=== PATIENT | female | born 1960 | race Caucasian/White ===

== ENCOUNTER 2024-09-09 20:07 | Emergency (ER) | payer OTHER, SELFPAY ==
[2024-09-09 20:17] VITALS: BP 138/66
--- NOTE | 2024-09-09 20:20 | ED.GENMED ---
ED Provider Triage
<Moshe Mejia Jr., PA-C - Last Filed: 09/09/24 20:24>
-
Patient seen by provider in Triage?: Seen in Triage
Attestation: A medical screening examination has been initiated by a qualified medical provider. Based on the assessment performed at this time, it has been determined that an emergent medical condition may exist and the patient has been informed
that further medical evaluation and possible additional diagnostic testing may be needed.
HPI: 64-year-old female presenting to the emergency department today with concerns of back pain worsening recently. History of back issues. Does have a spinal stimulator pending pain management follow-up. Plan to start with pain medication as
well as steroid. Otherwise neuro vastly intact distally no bowel or bladder dysfunction.
GENERAL: Alert , in no apparent distress
EYE: No visual abnormalities.
NECK: Trachea midline
ENT: No visible abnormalities.
LUNGS: No acute respiratory distress
NEUROLOGICAL: Alert and oriented
SKIN: Skin intact. No visible changes.
MUSCULOSKELETAL: Moving extremities normally
PSYCH: Normal and appropriate interaction.
This is a medical evaluation conducted in person to initiate diagnostic evaluation and provide initial therapeutics. Please see further documentation by the treating clinician.
History of Present Illness
<Moshe Mejia Jr., PA-C - Last Filed: 09/09/24 20:24>
General
Chief Complaint: Musculo-Skeletal Complaint
Time Seen by Provider: 09/09/24 21:55
<Ted Moran PA-C - Last Filed: 09/09/24 22:39>
General
Source: patient
History of Present Illness
History of Present Illness:
64-year-old female with past medical history of chronic back pain status post spinal cord stimulator placement 5 years ago, hyperlipidemia, migraines, anxiety presenting to the ER for an acute exacerbation of her lower back pain as well as noting
some right upper neck/shoulder pain. Patient saw her pain management provider about a week and a half ago and had trigger point injections which she states did not do anything for her pain and is scheduled to undergo additional procedure on September
. Patient states that she normally does not take any oral medications due to the spinal stimulator being in place but states that she had some leftover oxycodone which she attempted to take but still without any relief. Patient also tried muscle
relaxer and Tylenol but did not have any relief with this she denies any fevers or infectious symptoms, focal weakness or numbness, traumatic injuries or any other concerns at this time. Patient notes she did not contact her pain management doctor
following the trigger point injections to let them know her symptoms were worsening.
Past History
<Moshe Mejia Jr., PA-C - Last Filed: 09/09/24 20:24>
Past History
ED Past Medical History: Asthma, Hypercholesterolemia, Hypothyroidism and Other
ED Past Surgical History: Cholecystectomy, Gynecological and Orthopedic
Social History
Tobacco: Former smoker
Alcohol: None
Drug: None
Personal:
Living: with family
Employment: Retired
Family History
Family History: Other
Review of Systems
<Ted Moran PA-C - Last Filed: 09/09/24 22:39>
Review of Systems
All Other Systems: ROS reviewed and negative except as documented in HPI and ROS
Phy Exam
<Ted Moran PA-C - Last Filed: 09/09/24 22:39>
Physical Exam
Physical Exam:
GENERAL: Alert , in no apparent distress but does appear uncomfortable with movement and is tearful
EYE: conjunctiva clear
NECK: Supple
ENT: o/p clr, mmm.
CARDIAC: Regular rate and rhythm
LUNGS: Clear breath sounds bilaterally, no acute respiratory distress, no wheezes/rales/rhonchi
BACK: Appears uncomfortable with movement, generally tender
NEUROLOGICAL: Alert and oriented, ambulates with steady gait, moves all extremities, 5 out of 5 strength to upper and lower extremities bilateral. Sensation grossly intact to light touch.
SKIN: Warm and dry, skin intact.
MUSCULOSKELETAL: well perfused.
PSYCH: Normal and appropriate interaction.
Scores
<Ted Moran PA-C - Last Filed: 09/09/24 22:39>
Heart Failure Risk
Heart Failure Risk Score: Not Applicable
Heart Score for Chest Pain Patients
STEMI patient?: Not applicable
Withdrawal Assessment of Alcohol
Withdrawal Assessment Completed?: Not applicable
Course
<Moshe Mejia Jr., PA-C - Last Filed: 09/09/24 20:24>
Orders/Labs/Results
Orders:
Orders
09/09/24 20:24
Ketorolac [Toradol] 15 mg IM NOW STA
Prednisone [Deltasone] 50 mg PO NOW STA
09/09/24 22:15
HYDROmorphone [Dilaudid] 0.5 mg IM NOW STA
Vital Signs
Initial and Last Documented VS:
Initial Vital Signs
Temp Pulse Resp BP Pulse Ox
97.4 F 65 20 138/66 98
09/09/24 20:17 09/09/24 20:17 09/09/24 20:17 09/09/24 20:17 09/09/24 20:17
Last Documented Vital Signs
Temp Pulse Resp BP Pulse Ox
97.4 F 70 18 135/89 98
09/09/24 20:17 09/09/24 22:31 09/09/24 22:31 09/09/24 22:31 09/09/24 22:31
<Ted Moran PA-C - Last Filed: 09/09/24 22:39>
Orders/Labs/Results
Orders:
Orders
09/09/24 20:24
Ketorolac [Toradol] 15 mg IM NOW STA
Prednisone [Deltasone] 50 mg PO NOW STA
09/09/24 22:15
HYDROmorphone [Dilaudid] 0.5 mg IM NOW STA
Vital Signs
Initial and Last Documented VS:
Initial Vital Signs
Temp Pulse Resp BP Pulse Ox
97.4 F 65 20 138/66 98
09/09/24 20:17 09/09/24 20:17 09/09/24 20:17 09/09/24 20:17 09/09/24 20:17
Last Documented Vital Signs
Temp Pulse Resp BP Pulse Ox
97.4 F 70 18 135/89 98
09/09/24 20:17 09/09/24 22:31 09/09/24 22:31 09/09/24 22:31 09/09/24 22:31
<Ted Moran PA-C - Last Filed: 09/09/24 22:39>
MDM/Problems Addressed
Differential Diagnosis Includes:
Acute on chronic exacerbation of lower back pain. Considered UTI however no urinary symptoms and pain is very clearly reproducible with movement and palpation, no concern for emergent pathology
MDM/Problems Addressed:
64 year old female with PMH of chronic back pain presenting to the ER for acute on chronic exacerbation. No relief with previous medications. No fevers, no neurologic symptoms/claudication/saddle anesthesias. Pain seems clearly reproducible with
movement and palpation. Patient was treated with Toradol and prednisone from triage but notes minimal relief with this. I explained to patient that her symptoms appear to be an acute on chronic exacerbation of her pain. Explained patient would
need to follow-up with her pain management provider for further evaluation and treatment of this. Will treat her with 1 dose of intramuscular Dilaudid here and send her home with a Medrol Dosepak. At this time patient is otherwise stable for
discharge and aware of return precautions.
<Ted Moran PA-C - Last Filed: 09/09/24 22:39>
*Pulse Oximetry
Patient hypoxic: no
*Critical Care Note
Total Time (30-74mins, 75-104mins- exclusive of procedures): Not Applicable
Data Reviewed
Review of Other/Old Records Reveals: Records and Radiology Studies
ED Attending Note
<Moshe Mejia Jr., PA-C - Last Filed: 09/09/24 20:24>
-
Portions of this chart may have been created with voice recognition software.� Occasional wrong word or��sound alike� substitutions may have occurred due to the inherent limitations of voice recognition software.
Discharge Plan
Departure
Patient Disposition: Home (Routine Discharge)
Date of Disposition: 09/09/24
Time of Disposition: 22:16
Patient with high blood pressure during this ER visit?: No
Discharge Problem:
Acute exacerbation of chronic low back pain
Instructions: Low back pain - Discharge instructions
Prescriptions:
New
methylprednisolone [Medrol (Nicolas)] 4 mg tablets,dose pack
4 mg PO DIRECTED Qty: 21 0RF
No Action
Aller-Daisy
1 tab PO DAILY
multivitamin [One Daily] 1 EACH tablet
1 ea PO DAILY
atorvastatin 40 MG tablet
40 mg PO QPM
promethazine-codeine 473 ML syrup
118 ml PO PRN PRN (Reason: cough)
acyclovir [Zovirax] 400 MG tablet
400 mg PO TID PRN (Reason: viral outbreak)
chlorzoxazone 250 MG tablet
250 mg PO HS
citalopram 20 MG tablet
20 mg PO DAILY
oxycodone-acetaminophen [Percocet] 1 EACH tablet
1 ea PO BID PRN (Reason: pain)
levothyroxine 150 MCG tablet
0.5 tab PO SA
levothyroxine 150 MCG tablet
150 mcg PO MOTUWETHFR
aspirin 81 MG tablet,chewable
81 mg PO DAILY
lorazepam 1 MG tablet
1 mg PO Q4HPRN PRN (Reason: anxiety/aggitation)
morphine 15 MG tablet
15 mg PO BID
diazepam 5 MG tablet
5 mg PO HS PRN (Reason: aggitation)
omeprazole 20 MG tablet,delayed release (DR/EC)
20 mg PO DAILY
fluticasone furoate-vilanterol [Breo Ellipta] 1 EACH blister with device
1 ea IH DAILY
albuterol sulfate [ProAir RespiClick] 90 MCG aerosol powdr breath activated
2 puff IH Q4HPRN PRN (Reason: cough/sob)
butalbital-acetaminophen [Allzital] 1 EACH tablet
1 ea PO QID PRN (Reason: headaches)
cyclobenzaprine 10 MG tablet
10 mg PO TID Qty: 21 0RF
cetirizine 10 MG tablet
10 mg PO DAILY 0RF
acetaminophen [Tylenol Extra Strength] 500 MG tablet
1,000 mg PO Q8H 0RF
diazepam 5 MG tablet
5 mg PO TIDPRN PRN (Reason: Pain, spasm) Qty: 10 0RF
nitrofurantoin monohyd/m-cryst 100 MG capsule
100 mg PO BID 5 Days 0RF
azithromycin 250 MG tablet
250 mg PO DAILY Qty: 4 0RF
prednisone 20 MG tablet
40 mg PO DAILY Qty: 8 0RF
Interventions
Interventions:
*Risk Screen - Suicide Last Done: 09/09/24 21:32
*General Assessment Last Done: 09/09/24 21:32
*Neglect/Abuse Screening Last Done: 09/09/24 21:32
*ED COVID-19 Vaccine History Last Done: 09/09/24 21:32
*Nursing Disposition Last Done: 09/09/24 22:31
ED-Musculoskeletal Assessment Last Done: 09/09/24 21:32
Discharge Date and Time
Print Language: LIBYAN
[2024-09-09] MEDS: DELTASONE 50 MG PO (20:29)
[2024-09-09] MEDS: TORADOL 15 MG IM (20:30)
[2024-09-09] MEDS: DILAUDID 0.5 MG IM (22:27)
[2024-09-09 22:31] VITALS: BP 135/89
== END 2024-09-09 22:32 | disposition home or self-care (01) ==
LOC: EMR 20:07
PROVIDERS: EMERGENCY PHYSICIAN Emergency Medicine; FAMILY PHYSICIAN Nurse Practitioner Adult Health
DX: G89.29 Other chronic pain (principal); M54.50 Low back pain, unspecified; Z87.891 Personal history of nicotine dependence
CPT/HCPCS: 99284; 96372 ×2

== ENCOUNTER 2024-09-15 08:11 | Inpatient (IN) | payer OTHER, SELFPAY ==
[2024-09-13 16:48] VITALS: BP 151/87; BMI 35.7
--- NOTE | 2024-09-13 19:36 | ED.GENMED ---
History of Present Illness
General
Chief Complaint: Back Pain
Source: patient
Exam Limitations: none
Time Seen by Provider: 09/13/24 18:57
Nursing documentation reviewed up to this point in time: agreed with
History of Present Illness
History of Present Illness:
pt is a 64 y/o F with h/o chrnoic back pain, HLD
she has a spinal stimulator x 4-5 years
managed by pain management but doesn'tusually need to take meds because her pain is usually controlled
3 weeks ago started having pain in her usual area lower back b/l lumbar, nonradiating as well as pain in the R upper back/neck region that radiates to her R shoulder
she said that over the past 6 days it has gotten much wors ein both areas
she came in on 09/09 and was givne IM dilaudid as well as medrol dose mitesh;
the following day 09/10 she had a terrible centrla chest pain lasting 5 min that resolved
then has continued to have pain in both the upper and lower bakc
again nonradiating and no weakness, no numbness/tingling in legs, no incontience
but she has had nocturia, peeing a lot at night; no dysuria
went to pain management earlier today where she had trigger point injections in both her neck and her lower back
she then went to her PCP who checked her urine and said she had possibly an infection so she starte antibiotics
pt is here because pain is getting worse; she has had left over meds morphine ER, oxycodone, muscle relaxants which she has trie dwithout relief
took muscle relaxant and 2 tylenol at 11 am
pt is not having fever, chills, weakness in the legs, numbness in the legs, vomiting, chest pain, incontinence
Past History
Past History
ED Past Medical History: Asthma, Hypercholesterolemia, Hypothyroidism and Other
ED Past Surgical History: Cholecystectomy, Gynecological and Orthopedic
Social History
Tobacco: Former smoker
Alcohol: None
Drug: None
Personal:
Living: with family
Employment: Retired
Family History
Family History: Other
Phy Exam
Physical Exam
Physical Exam:
GENERAL: Alert , very tearful, crying
HEAD: NCAT
NECK: no midline tenderness, active ROM intact, no paraspinal muscle tenderness; pt has tenderness R paraspinal muscles and R trap tenderness
CARDIAC: Regular rate and rhythm, no edema
LUNGS: Clear breath sounds bilaterally, no acute respiratory distress, no wheezes/rales/rhonchi
ABDOMEN: Soft, without focal tenderness, no r/g, no cvat, normal bowel sounds, nondistended
NEUROLOGICAL: Alert and oriented, no focal neuro deficits, CN intact, 5/5 strength, sensation intact, neg striaght leg raise
SKIN: Warm and dry,
MUSCULOSKELETAL: No edema, well perfused. nontender hips
Back: normal inspection
spine simtulator palpated in the lumbar area
able to flex her back, some pain with change of position
neg straight leg raise b/l
nv intact
PSYCH: Normal and appropriate interaction.
Course
Orders/Labs/Results
Orders:
Orders
09/13/24 06:00
Levothyroxine [Synthroid] 175 mcg PO MOTUWETHFR
09/13/24 Dinner
Regular
At Your Request: Full Participation
09/13/24 19:20
CT Chest/abd/pelvis Angio W/wo Urgent
Comment:
Reason For Exam: upper back pain, lower back pain, severe;
HYDROmorphone [Dilaudid] 1 mg IV NOW STA
09/13/24 19:21
Electrocardiogram (*1) Stat
Reason for Study: Other
Other Reason for Exam: chest pain
EKG- Treatment ONCE
09/13/24 19:51
Complete Blood Count/With Diff Urgent
Comprehensive Metabolic Panel Urgent
Troponin I Urgent
09/13/24 19:59
Urinalysis Reflex To Culture Urgent
Date Specimen was Collected: 09/13/24
Time Specimen was Collected: 19:57
Urine Microscopic Reflex Cult Urgent
Urine Culture Urgent
[place] Source: U
Specimen Description:
Date Specimen was Collected: 09/13/24
Time Specimen was Collected: 19:57
09/13/24 21:56
CefTRIAXone [Rocephin] 1,000 mg IV NOW STA
HYDROmorphone [Dilaudid] 1 mg IV NOW STA
09/13/24 22:12
Sterile Water [Sterile Water For Injection] 10 ml .ROUTE .[facility]
09/13/24 22:36
Admit/Transfer Patient As Directed
Co-Sign Provider:
Level of Care: Observation services
Assign to:: Medical/Surgical
Physician / Group: [id number]
Diagnosis: acute on chronic lower back pain
Code Status As Directed
Resuscitation Status: Full Code
PRN Pain Medication Management As Directed
May give lesser potent ordered pain med per pt: Yes
preference::
Protocol:: Medication orders for pain may be administered in a
manner that supports deferring to patient preference
when the pt is:
- Requesting an ordered lesser potent pain medication.
Least to most potent pain medications are defined
as: acetaminophen < NSAID < tramadol < opioids
(morphine, oxycodone, hydromorphone).
- Requesting a lesser dose of the same medication IF
ORDERED.
- Requesting a less intrusive route of administration
if both routes are prescribed by the provider (PO <
IV).
09/13/24 23:00
Flush (0.9% Sodium Chloride) [Flush (Nss)] See Dose Instructions IV PER PROTOCOL
09/13/24 23:14
Acetaminophen [Tylenol] 1,000 mg PO Q8HPRN PRN
Albuterol [ProAIR HFA INHALER] 2 puff INH R Q4HPRN PRN
HYDROmorphone [Dilaudid] 1 mg IV Q4HPRN PRN
Ibuprofen [Motrin] 400 mg PO Q6HPRN PRN
MethylPREDNISolone [Medrol] 8 mg PO ONCE ONE
Ondansetron Injectable [Zofran] 4 mg IV Q6HPRN PRN
09/13/24 23:14
Activity As Directed
Activity Level: As Tolerated
Vital Signs As Directed
Frequency: Per unit guidelines
Ot Eval And Treat Routine
Pt Eval And Treat Routine
Activity Level: As Tolerated
DX Deep Vein Thrombosis Video Routine
09/13/24 23:55
Acyclovir [Zovirax] 400 mg PO TIDPRN PRN
09/14/24 00:01
Chlorzoxazone (Non-Form) [Parafon Forte] 500 mg PO BIDPRN PRN
09/14/24 00:04
Zolpidem Tartrate [Ambien] 10 mg PO HS
09/14/24 06:00
Levothyroxine [Synthroid] 175 mcg PO MOTUWETHFR
09/14/24 06:56
Complete Blood Count/With Diff IN AM
Comprehensive Metabolic Panel IN AM
09/14/24 08:00
Aspirin Chewable [Low Strength Aspirin] 81 mg PO DAILY
Budesonide/Formoterol 160/4.5 [Symbicort 160/4.5 Mcg Inhaler] 2 puff INH R BID
Cephalexin Monohydrate [Keflex] 250 mg PO QID
Cholecalciferol (Vitamin D3) [VITAMIN D3 (cholecalciferol)] 50 mcg PO DAILY
Citalopram [Celexa] 40 mg PO DAILY
Heparin 5,000 units SC Q12
Lidocaine [Lidocaine 4% Patch] 1 patch TOPICAL DAILY
Apply Lidocaine patch(s) to:: upper and lower back
MethylPREDNISolone [Medrol] 4 mg PO ONCE ONE
Multivitamin [Theragran] 1 tablet PO DAILY
Topiramate [Topamax] 100 mg PO BID
09/14/24 11:17
Non-Formulary Item See Dose Instructions PO BIDPRN PRN
09/14/24 14:28
Urine Sodium Routine
Date Specimen was Collected: 09/15/24
Time Specimen was Collected: 03:29
Sennosides [Senokot] 8.6 mg PO NOW STA
09/14/24 15:00
Polyethylene Glycol Powder [Miralax] 17 grams PO DAILY
09/14/24 15:20
EKG [Electrocardiogram (*1)] Routine
Reason for Study: Abnormal EKG
09/14/24 15:24
Cpap [RESP] Routine
Patient to use own unit?: Yes
09/14/24 15:30
0.9% Sodium Chloride 1000 ml [Nss] 1,000 ml IV 75 mls/hr
09/14/24 16:00
Cyclobenzaprine HCl [Flexeril] 5 mg PO TID
Dexamethasone Sod Phosphate [Decadron] 4 mg IV Q8H
09/14/24 20:00
Acetaminophen [Tylenol] 1,000 mg PO Q8H
Sennosides [Senokot] 17.2 mg PO BID
09/14/24 22:00
Atorvastatin [Lipitor] 40 mg PO HS
Cetirizine HCl [Zyrtec] 10 mg PO HS
09/15/24 08:05
Level of Care Change As Directed
Level of Care: Inpatient admission
Reason for Hospitalization: pain management
Expected length of stay greater than two midnights?: Yes
ELOS- Estimated Length of Stay in days: 2
I certify the patient meets the requirements for IP care: Yes
09/15/24 15:19
MR Lumbar Without Contrast Routine
Reason For Exam: pain
Recent pill cam endoscopy?: No
Abnormal Lab Results
09/13/24 09/13/24 09/14/24
19:51 19:59 06:56
WBC 13.7 H 10^3/uL
(4.8-10.8)
MCH 32.1 H pg 31.5 H pg
(27.0-31.0) (27.0-31.0)
MCHC 32.8 L g/dL
(33.0-37.0)
Abs Immat Gran (auto) 0.1 H 10^3/uL 0.1 H 10^3/uL
(0-0.05) (0-0.05)
Absolute Neuts (auto) 9.8 H 10^3/uL 8.5 H 10^3/uL
(1.4-6.5) (1.4-6.5)
Absolute Monos (auto) 0.7 H 10^3/uL
(0.1-0.6)
Immature Gran % 0.6 H %
(0-0.5)
Neutrophils % 79.9 H %
(42.2-75.2)
Lymphocytes % 14.3 L %
(20.5-51.1)
BUN 19 H mg/dl 22 H mg/dl
(7-17) (7-17)
Creatinine 1.2 H mg/dL
(0.6-1.0)
Glucose 102 H mg/dl
(70-99)
ALT 36 H U/L 37 H U/L
(0-35) (0-35)
Leukocyte Esterase Rfl Trace A
(Negative)
Urine WBC (Reflex) 11-15 A /HPF
(0-5)
Urine Bacteria (Reflex) Few A
(Negative)
09/14/24 06:56
09/14/24 06:56
Vital Signs
Initial and Last Documented VS:
Initial Vital Signs
Pulse Resp BP Pulse Ox
66 18 151/87 98
09/13/24 16:48 09/13/24 16:48 09/13/24 16:48 09/13/24 16:48
Last Documented Vital Signs
Temp Pulse Resp BP Pulse Ox
36.6 C 58 16 109/55 98
09/18/24 23:45 09/18/24 23:45 09/18/24 23:45 09/18/24 23:45 09/18/24 23:45
MDM/Problems Addressed
Differential Diagnosis Includes:
cervical disc disease, lumbar raidculopathy, dissetction
MDM/Problems Addressed:
64 y/oF
chronic back pain
spine stimulator
started having neck pain (new) 3 weeks ago with worsening lower back leslie
she sys the pain is severe
she odesn'tusually need opiates since her stimulator
pt has tried meds withut relief
she is cryin gtears, very uncofmrotable
able to move her neck and back
nv intact
d/w ed attending with her upper back pian and lower symptoms, concern for vascular pathology
ct c/a/p dissection study which did not show dissection
stil having pain despite multiple doses iv dilaudid
will admit for intractable back pain
likely radiculopathy
no cuada equina
*Critical Care Note
Total Time (30-74mins, 75-104mins- exclusive of procedures): Not Applicable
ED Attending Note
-
Portions of this chart may have been created with voice recognition software.� Occasional wrong word or��sound alike� substitutions may have occurred due to the inherent limitations of voice recognition software.
Discharge Plan
Departure
Patient Disposition: Admit
Date of Disposition: 09/13/24
Time of Disposition: 21:56
Admit to: Med/Surg
Presentation/result/management discussed w/ accepting MD/DO: Hospitalist
Condition: Fair
Covid-19: Not Applicable
Discharge Problem:
Intractable back pain, Staghorn calculus
Interventions
Interventions:
*Risk Screen - Suicide Last Done: 09/13/24 23:30
*General Assessment Last Done: 09/13/24 17:43
*Neglect/Abuse Screening Last Done: 09/13/24 17:43
ED- Fall Risk Assessment Last Done: 09/13/24 17:43
*ED COVID-19 Vaccine History Last Done: 09/13/24 23:30
*Nursing Disposition Last Done: 09/13/24 23:18
ED-Musculoskeletal Assessment Last Done: 09/13/24 17:45
Discharge Date and Time
Discharge Date/Time: 09/13/24 23:20
[2024-09-13] MEDS: DILAUDID 1 MG IV ×2 (20:03→22:13)
[2024-09-13 20:04] LABS: % Basophils 0.3 % (0-2); % Eosinophils 0.2 % (0-6); % Immature Granulocytes 0.4 % (0-0.5); % Lymphocytes 22.7 % (20.5-51.1); % Neutrophils 71.4 % (42.2-75.2); Absolute Immature Granulocytes 0.1 10^3/uL (0-0.05); Absolute Lymphocytes 3.1 10^3/uL (1.2-3.4); Absolute Monocytes 0.7 10^3/uL (0.1-0.6); Absolute Neutrophils 9.8 10^3/uL (1.4-6.5); Hemoglobin 14.6 g/dL (12.0-16.0); Mean Corpuscular Hgb 32.1 pg (27.0-31.0); Mean Corpuscular Volume 94.5 fL (81.0-99.0); Mean Platelet Volume 8.4 fL (7.4-10.4); Nucleated Red Blood Cells % 0 %; Platelet Count 230 10^3/uL (130-400); Red Blood Cell Count 4.55 10^6/uL (4.20-5.40); Red Cell Dist. Width 12.7 % (11.5-14.5); White Blood Cell Count 13.7 10^3/uL (4.8-10.8)
[2024-09-13 20:08] LABS: Urine Albumin Negative (Neg - Trace); Urine Bilirubin Negative (Negative); Urine Character Clear (Clear); Urine Color Yellow; Urine Glucose Negative (Negative); Urine Ketone Negative (Negative); Urine Leukocyte Trace (Negative); Urine Nitrite Negative (Negative); Urine Occult Blood Negative (Negative); Urine Urobilinogen Negative (Neg - 1+)
[2024-09-13 20:18] LABS: ALT (SGPT) 36 U/L (0-35); AST (SGOT) 29 U/L (14-36); Albumin 4.5 g/dl (3.5-5.0); Alkaline Phosphatase 116 U/L (38-126); Blood Urea Nitrogen 19 mg/dl (7-17); Calcium 9.4 mg/dl (8.4-10.2); Carbon Dioxide 23 mmol/L (22-30); Chloride 106 mmol/L (98-107); Estimated Creatinine Clearance 62 ml/min; Glucose 92 mg/dl (70-99); Potassium 3.5 mmol/L (3.5-5.1); Sodium 139 mmol/L (135-145); Total Bilirubin 0.5 mg/dl (0.2-1.3); Total Protein 6.9 g/dl (6.3-8.2); eGFR > 60.00
[2024-09-13 20:29] LABS: Troponin I < 0.012 ng/ml
[2024-09-13 21:00] LABS: Urine Bacteria Few (Negative); Urine Red Blood Cell 0-2 /HPF (0-2)
[2024-09-13 21:31] VITALS: BP 114/70
[2024-09-13] MEDS: ROCEPHIN 1000 MG IV (22:13)
--- NOTE | 2024-09-13 22:43 | HPS.HSE ---
Family Physician
-
Family Physician: Ellis Aranda
Chief Complaint
-
back pain
History of Present Illness
64-year-old female past medical history of chronic back pain with spinal stimulator for 4 to 5 years, hyperlipidemia, asthma, hypothyroidism, migraines, obstructive sleep apnea, nephrolithiasis presenting for severe back pain.
Patient sees pain management and usually does not need to take medications but her pain is usually controlled. 3 weeks ago she started having pain in the usual area in her lower back bilaterally in the lumbar region. Pain is also in the right
upper back/neck region radiates to her right shoulder. Over the past 6 days has gotten significantly worse in both areas.
She came to the emergency room on 09/09 was given Dilaudid and Medrol Dosepak. On 09/10 she had terrible central chest pain lasting 5 minutes and resolved.
She denies any NS, numbness or tingling in the legs or any incontinence. She has however had to urinate a lot at night over the past few days but denies any burning with urination or discomfort.
She went to pain management earlier today and had trigger point injections both her neck and lower back. She went to her primary care physician afterwards checked her urine and states that she probably had a urinary tract infection and started
antibiotic. She denies any fevers or chills, vomiting or diarrhea.
She is a former smoker. Drinks alcohol only very rarely.
Medical History
Past Medical History
Past Medical History: Reports Other (chronic back pain with spinal stimulator for 4 to 5 years, hyperlipidemia, asthma, hypothyroidism, migraines, obstructive sleep apnea, nephrolithiasis)
Past Surgical History: Reports None
Social History
Tobacco: Former Smoker
Alcohol: Occasional
Family History
Family History: Not pertinent
Allergies / Home Medications
Allergies reflects when Allergies were last updated in [facility].
Home Medications with original date entered in [facility]
Allergy/Medication List:
Allergies
Allergy/AdvReac Type Severity Reaction Status Date / Time
adhesive tape Allergy Rash Verified 09/09/24 20:24
durapore adhesive Allergy Rash Uncoded 09/09/24 20:24
medipore adhesive Allergy Rash Uncoded 09/09/24 20:24
transpore adhesive Allergy Rash Uncoded 09/09/24 20:24
Home Medications
aspirin 81 mg chewable tablet 81 mg PO DAILY 11/14/19
atorvastatin 40 mg tablet 40 mg PO HS 11/14/19
methylprednisolone 4 mg tablets in a dose pack (Medrol (Nicolas)) 4 mg PO DIRECTED #21 ea 09/09/24
acetaminophen 500 mg tablet (Tylenol Extra Strength) 1,000 mg PO Q8HPRN PRN mild pain 09/13/24
acyclovir 400 mg tablet 400 mg PO TIDPRN PRN viral outbreak 09/13/24
albuterol sulfate 90 mcg/actuation aerosol inhaler 2 puff inhalation R Q4HPRN PRN sob 09/13/24
cephalexin 250 mg capsule 250 mg PO QID 09/13/24
cetirizine 10 mg tablet 10 mg PO HS 09/13/24
chlorzoxazone 500 mg tablet 500 mg PO BIDPRN PRN spasms 09/13/24
cholecalciferol (vitamin D3) 50 mcg (2,000 unit) tablet (Vitamin D3) 50 mcg PO DAILY 09/13/24
citalopram 40 mg tablet 40 mg PO DAILY 09/13/24
fluticasone furoate 200 mcg-vilanterol 25 mcg/dose inhalation powder (Breo Ellipta) 1 inh inhalation R DAILY 09/13/24
levothyroxine 175 mcg tablet 175 mcg PO MOTUWETHFR 09/13/24
therapeutic multivitamin 1 tab PO DAILY 09/13/24
topiramate 100 mg tablet 100 mg PO BID 09/13/24
zolpidem 10 mg tablet 10 mg PO HS 09/13/24
Review of Systems
-
History Source: Patient
A 12 point ROS was completed and negative except as noted: Yes
Constitutional: Reports No Symptoms
EENT: Reports No Symptoms
Respiratory: Reports No Symptoms
Cardiac: Reports No Symptoms
Abdomen/GI: Reports No Symptoms
: Reports See HPI
Musculoskeletal: Reports See HPI
Skin: Reports No Symptoms
Neurological: Reports No Symptoms
Endocrine: Reports No Symptoms
Hematologic/Lymphatic: Reports No Symptoms
Psych: Reports No Symptoms
Physical Exam
Vital Signs
Vital Signs
Temp Pulse Resp BP Pulse Ox
97.4 F 52 20 114/70 97
09/13/24 21:31 09/13/24 21:31 09/13/24 21:31 09/13/24 21:31 09/13/24 21:31
Physical Exam
General: Well Developed, Well Nourished and No Apparent Distress
HEENT: NormoCephalic, Moist mucous membranes and Atraumatic
Respiratory: Clear
Cardiac: S1/S2 and Regular Rhythm; No Murmur or Rub
GI: Soft, Non Tender, Non Distended and Normal Bowel Sounds; No Organomegaly
Rectal: Deferred by Provider
Musculoskeletal: No Clubbing, No Cyanosis and No Edema
Skin: No Rash
Neuro: Nonfocal/grossly intact
Laboratory Results
-
09/13/24 19:51
09/13/24 19:51
Laboratory Results
Total Bilirubin 0.5 mg/dl (0.2-1.3) 09/13/24 19:51
AST 29 U/L (14-36) 09/13/24 19:51
ALT 36 U/L (0-35) H 09/13/24 19:51
Alkaline Phosphatase 116 U/L (38-126) 09/13/24 19:51
Troponin I < 0.012 ng/ml 09/13/24 19:51
Data Reviewed
-
Lab Data: Labs Reviewed by me
Old Records: Reviewed
Impression/Plan
-
IMPRESSION:
PLAN:
# Acute on chronic lower back pain/upper back pain
# C5-C6 spinal stenosis/disc herniation prior MRI
-No neurological symptoms or findings of cauda equina
-CT scan shows spinal stimulator wires terminating in the posterior central thoracic spinal canal at T6/T7,
-MRI of C-spine from 2019 shows spinal stenosis/disc herniation however lumbar MRI relatively unremarkable
-Tylenol, add ibuprofen, add lidocaine patch, Dilaudid for pain, continue chlorzoxazone
-Continue Medrol Dosepak for 2 more days since started on 09/09
-PT/OT
-Patient is not sure when her last MRIs were, may need to consider MRI of cervical and lumbar if no improvement in pain
# Urinary tract infection
-Analysis not impressive as she is on Keflex
-Continue Keflex for UTI
# Nonobstructing staghorn calculus in the left kidney
-Unlikely to be contributing to pain
-ER spoke with urology states consult is not necessary
Hyperlipidemia
-Continue statin
Asthma
-Continue albuterol
Hypothyroidism
-Continue levothyroxine
Migraines
-Continue Topamax
Obstructive sleep apnea
Anxiety/depression
-Continue citalopram, Ativan
Insomnia
-continue zolpidem
Full code
DVT prophylaxis�heparin
Regular diet
[2024-09-13 23:14] VITALS: BMI 35.4
--- NOTE | 2024-09-13 23:15 | PTCARENOTE ---
Pt a 64 y/o F arrived from ED at 23:11 with Acute with Chronic Lower Back Pain. PMH Chronic Back Pain, Headaches/Frequent, Migraines, Asthma, HLD, Hypothyroidism, Anxiety, Renal Calculi/stones, Covid (Jul 07) & Sleep Apnea. Pt A0x3, bed in low
position, call light in reach care on-going.
[2024-09-13 23:45] VITALS: BP 129/69
[2024-09-14] MEDS: MOTRIN 400 MG PO (00:05)
[2024-09-14] MEDS: MEDROL 8 MG PO (00:08)
[2024-09-14] MEDS: AMBIEN 10 MG PO ×2 (00:25→23:00)
[2024-09-14] MEDS: DILAUDID 1 MG IV ×5 (02:13→20:38)
[2024-09-14] MEDS: SYNTHROID 175 MCG PO (05:09)
[2024-09-14 07:09] LABS: % Basophils 0.2 % (0-2); % Eosinophils 0.2 % (0-6); % Immature Granulocytes 0.6 % (0-0.5); % Lymphocytes 14.3 % (20.5-51.1); % Monocytes 4.8 % (1.7-9.3); % Neutrophils 79.9 % (42.2-75.2); Absolute Immature Granulocytes 0.1 10^3/uL (0-0.05); Absolute Lymphocytes 1.5 10^3/uL (1.2-3.4); Absolute Monocytes 0.5 10^3/uL (0.1-0.6); Absolute Neutrophils 8.5 10^3/uL (1.4-6.5); Hematocrit 43.3 % (37.0-47.0); Hemoglobin 14.2 g/dL (12.0-16.0); Mean Corp Hgb Conc. 32.8 g/dL (33.0-37.0); Mean Corpuscular Hgb 31.5 pg (27.0-31.0); Mean Platelet Volume 8.4 fL (7.4-10.4); Nucleated Red Blood Cells % 0 %; Platelet Count 251 10^3/uL (130-400); Red Blood Cell Count 4.51 10^6/uL (4.20-5.40); Red Cell Dist. Width 12.8 % (11.5-14.5); White Blood Cell Count 10.6 10^3/uL (4.8-10.8)
[2024-09-14 07:42] LABS: ALT (SGPT) 37 U/L (0-35); AST (SGOT) 29 U/L (14-36); Albumin 4.2 g/dl (3.5-5.0); Alkaline Phosphatase 108 U/L (38-126); Blood Urea Nitrogen 22 mg/dl (7-17); Calcium 9.3 mg/dl (8.4-10.2); Carbon Dioxide 23 mmol/L (22-30); Chloride 107 mmol/L (98-107); Estimated Creatinine Clearance 52 ml/min; Glucose 102 mg/dl (70-99); Potassium 4.2 mmol/L (3.5-5.1); Sodium 139 mmol/L (135-145); Total Bilirubin 0.3 mg/dl (0.2-1.3); Total Protein 6.6 g/dl (6.3-8.2); eGFR 50.23
[2024-09-14] MEDS: SYMBICORT 160/4.5 MCG INHALER 2 PUFF INH ×2 (07:42→20:00)
[2024-09-14 08:00] VITALS: BP 127/62
[2024-09-14] MEDS: CELEXA 40 MG PO (08:25)
[2024-09-14] MEDS: KEFLEX 250 MG PO ×4 (08:25→22:59)
[2024-09-14] MEDS: TOPAMAX 100 MG PO ×2 (08:25→20:04)
[2024-09-14] MEDS: VITAMIN D3 (cholecalciferol) 50 MCG PO (08:25)
[2024-09-14] MEDS: LOW STRENGTH ASPIRIN 81 MG PO (08:25)
[2024-09-14] MEDS: THERAGRAN 1 TABLET PO (08:25)
[2024-09-14] MEDS: HEPARIN 5000 UNITS SC ×2 (08:26→20:03)
[2024-09-14] MEDS: LIDOCAINE 4% PATCH 1 PATCH TOPICAL (08:26)
[2024-09-14 09:56] VITALS: BP 120/59; PULSE 53; O2SAT 95
[2024-09-14 10:31] VITALS: BP 120/59; PULSE 53; O2SAT 95
[2024-09-14 10:35] VITALS: BP 120/89; PULSE 57; O2SAT 95
[2024-09-14] MEDS: MEDROL 4 MG PO (10:54)
[2024-09-14] MEDS: TYLENOL 1000 MG PO ×2 (12:18→20:04)
--- NOTE | 2024-09-14 14:21 | W.PN.HOSP.TC ---
Today's Communication/Plan
-
MRI L spine
Steroids
Assessment / Plan
Assessment / Plan
64-year-old female presented to the hospital with back pain. She is chronic back pain and had a spinal stimulator placed 4 to 5 years ago.
3 weeks ago she started having more pain pain is also in the right upper back neck radiates to the right shoulder. She also had some chest pain
CTA-no thoracic aortic dissection or aneurysm. Minimal calcific atherosclerotic plaque in the thoracic aorta. Spinal stimulator wires terminating T6-T7. No AAA, 1.2 cm nonobstructing staghorn calculus in the midpole of the left kidney. Mild to
moderate chronic bilateral renal disease. Moderate amount of fecal material throughout the colon. Moderate diverticulosis in the sigmoid colon. Grade 1 anterolisthesis L5 on S1. Spinal stimulator in the left posterior subcutaneous fat of the
lower back
CVS: S1-S2 normal
Chest: CTA B/L
Abdomen: Soft, NT, Bowel sounds present
Extremities: No edema, normal pulses
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
No clear spine tenderness noted but patient points to lumbar area for most of her pain
# Acute on chronic lower back pain and upper back pain
Patient is very vague about where her pain is. But endorses that most of her pain is in the lower back
Patient has a spinal stimulator
C5-6 spinal stenosis and disc herniation on prior MRI
CT scan showing spinal stimulator wires terminating the posterior central thoracic spinal canal
Medrol Dosepak started on 09/09 , completed. Add Decadron
PT OT
Muscle relaxants add Flexeril in the place of caroxazone
Continue Tylenol, lidocaine patch, Dilaudid
# Chest discomfort on admission EKG noted. Troponin negative
# UTI-continue Keflex which she was on prior to admission
nonobstructing staghorn calculus in the left kidney
ER spoke with urology-no interventions planned
Discussed about outpatient urology follow-up
# Acute kidney injury-hold further NSAIDs. IV fluids
Contrast-induced nephropathy needs to be considered
# Hyperlipidemia-continue statin
# Asthma-stable continue as needed albuterol
# Hypothyroidism-continue Synthroid
# Migraines-continue Topamax
# Constipation-bowels regimen
# Diverticulosis
# Sleep apnea- to bring CPAP
# Anxiety and depression-continue Ativan and citalopram
# Insomnia-continue Ambien
# DVT prophylaxis-subcutaneous heparin
# Full code
D/W at bed side
Anticipated Discharge: Within 24 hours
Subjective/Interval History
-
Date of Service: September 14, 2024
Objective Data
-
Labs:
Laboratory Results
09/14/24
06:56
WBC 10.6
Hgb 14.2
Hct 43.3
Plt Count 251
Sodium 139
Potassium 4.2
Chloride 107
Carbon Dioxide 23
BUN 22 H
Creatinine 1.2 H
Glucose 102 H
Calcium 9.3
Total Bilirubin 0.3
AST 29
ALT 37 H
Alkaline Phosphatase 108
Vital Signs:
Vital Signs
Temp Pulse Resp BP Pulse Ox
97.6 F 54 18 127/62 97
09/14/24 08:00 09/14/24 08:00 09/14/24 08:00 09/14/24 08:00 09/14/24 08:00
I&O
09/13/24 09/14/24 09/15/24
06:59 06:59 06:59
Intake Total 480 / 480
Balance 480 / 480
[2024-09-14] MEDS: SENOKOT 8.6 MG PO (14:38)
[2024-09-14] MEDS: MIRALAX 17 GRAMS PO (14:38)
[2024-09-14 15:02] VITALS: BP 126/67
[2024-09-14] MEDS: NSS 1000 IV (16:14)
[2024-09-14] MEDS: DECADRON 4 MG IV ×2 (16:14→23:53)
[2024-09-14] MEDS: FLEXERIL 5 MG PO ×2 (16:15→23:00)
[2024-09-14] MEDS: SENOKOT 17.2 MG PO (20:03)
[2024-09-14 23:00] VITALS: BP 128/63
[2024-09-14] MEDS: ZYRTEC 10 MG PO (23:00)
[2024-09-14] MEDS: LIPITOR 40 MG PO (23:00)
[2024-09-15] MEDS: DILAUDID 1 MG IV ×5 (02:55→20:41)
[2024-09-15 04:02] LABS: Urine Sodium 70 mmol/L (30-90)
[2024-09-15] MEDS: TYLENOL 1000 MG PO ×3 (04:10→19:49)
[2024-09-15] MEDS: SYNTHROID 175 MCG PO (05:40)
[2024-09-15] MEDS: TOPAMAX 100 MG PO ×2 (07:20→19:50)
[2024-09-15] MEDS: LOW STRENGTH ASPIRIN 81 MG PO (07:20)
[2024-09-15] MEDS: FLEXERIL 5 MG PO ×3 (07:20→23:03)
[2024-09-15] MEDS: THERAGRAN 1 TABLET PO (07:20)
[2024-09-15] MEDS: VITAMIN D3 (cholecalciferol) 50 MCG PO (07:20)
[2024-09-15] MEDS: SENOKOT 17.2 MG PO ×2 (07:20→19:49)
[2024-09-15] MEDS: KEFLEX 250 MG PO ×4 (07:20→23:03)
[2024-09-15] MEDS: CELEXA 40 MG PO (07:20)
[2024-09-15] MEDS: LIDOCAINE 4% PATCH 1 PATCH TOPICAL (07:21)
[2024-09-15] MEDS: HEPARIN 5000 UNITS SC ×2 (07:21→19:50)
[2024-09-15] MEDS: DECADRON 4 MG IV ×3 (07:21→23:56)
[2024-09-15] MEDS: MIRALAX 17 GRAMS PO (07:22)
[2024-09-15] MEDS: SYMBICORT 160/4.5 MCG INHALER 2 PUFF INH ×2 (07:47→19:21)
[2024-09-15 08:15] VITALS: BP 131/64
--- NOTE | 2024-09-15 11:14 | W.PN.HOSP.TC ---
Today's Communication/Plan
-
Get MRI as her pain is not getting better
Continue steroids
Tylenol to be continued
Add oxycodone
Dilaudid for severe pain
BMP
Await callback from [facility]
Assessment / Plan
Assessment / Plan
64-year-old female presented to the hospital with back pain. She is chronic back pain and had a spinal stimulator placed 4 to 5 years ago.
3 weeks ago she started having more pain pain is also in the right upper back neck radiates to the right shoulder. She also had some chest pain
CTA-no thoracic aortic dissection or aneurysm. Minimal calcific atherosclerotic plaque in the thoracic aorta. Spinal stimulator wires terminating T6-T7. No AAA, 1.2 cm nonobstructing staghorn calculus in the midpole of the left kidney. Mild to
moderate chronic bilateral renal disease. Moderate amount of fecal material throughout the colon. Moderate diverticulosis in the sigmoid colon. Grade 1 anterolisthesis L5 on S1. Spinal stimulator in the left posterior subcutaneous fat of the
lower back
CVS: S1-S2 normal
Chest: CTA B/L
Abdomen: Soft, NT, Bowel sounds present
Extremities: No edema, normal pulses
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
No clear spine tenderness noted but patient points to lumbar area for most of her pain
She states her pain is worse in the neck which goes to the right scapular area and also lower back. Not getting better with the current medicines.
# Acute on chronic lower back pain and upper back pain
Patient is very vague about where her pain is. But endorses that most of her pain is in the lower back
Patient has a spinal stimulator
C5-6 spinal stenosis and disc herniation on prior MRI
CT scan showing spinal stimulator wires terminating the posterior central thoracic spinal canal
Medrol Dosepak started on 09/09 , completed. Add Decadron
PT OT
Muscle relaxants add Flexeril in the place of caroxazone
Continue Tylenol, lidocaine patch, Dilaudid
She sees at [facility]
Obtain MRI of the C-spine and lumbar spine
# Chest discomfort on admission EKG noted. Neg for ischemia on repeat also. Troponin negative
Likely from Radiculopathy/Muscular.
# UTI-continue Keflex which she was on prior to admission
nonobstructing staghorn calculus in the left kidney
ER spoke with urology-no interventions planned
Discussed about outpatient urology follow-up
# Acute kidney injury-hold further NSAIDs. IV fluids
Contrast-induced nephropathy needs to be considered
BMP pending.
# Hyperlipidemia-continue statin
# Asthma-stable continue as needed albuterol
# Hypothyroidism-continue Synthroid
# Migraines-continue Topamax
# Constipation-bowels regimen
# Diverticulosis
# Sleep apnea-CPAP
# Anxiety and depression-continue Ativan and citalopram
# Insomnia-continue Ambien
# DVT prophylaxis-subcutaneous heparin
# Full code
09/14/24-D/W at bed side
Called and left a message for [facility]
Anticipated Discharge: 24 - 48 hours
Subjective/Interval History
-
Date of Service: September 15, 2024
Objective Data
-
Labs:
Laboratory Results
09/15/24
11:12
Sodium Pending
Potassium Pending
Chloride Pending
Carbon Dioxide Pending
BUN Pending
Creatinine Pending
Glucose Pending
Calcium Pending
Vital Signs:
Vital Signs
Temp Pulse Resp BP Pulse Ox
97.9 F 58 16 131/64 96
09/15/24 08:15 09/15/24 08:15 09/15/24 08:15 09/15/24 08:15 09/15/24 08:15
I&O
09/14/24 09/15/24 09/16/24
06:59 06:59 06:59
Intake Total 480 / 480 1895 / 1895
Output Total 600 / 600
Balance 480 / 480 1295 / 1295
[2024-09-15] MEDS: MILK OF MAGNESIA 30 ML PO (11:48)
[2024-09-15] MEDS: PROTONIX 40 MG PO (12:00)
[2024-09-15 13:28] LABS: Blood Urea Nitrogen 18 mg/dl (7-17); Calcium 9.9 mg/dl (8.4-10.2); Carbon Dioxide 24 mmol/L (22-30); Chloride 105 mmol/L (98-107); Estimated Creatinine Clearance 69 ml/min; Glucose 123 mg/dl (70-99); Sodium 137 mmol/L (135-145); eGFR > 60.00
[2024-09-15 15:00] VITALS: BP 128/70
--- NOTE | 2024-09-15 16:18 | PTOTSP ---
Reviewed chart and went to see pt in her room 2118. Pt with multiple family members present. Pt stated 'the medications are not helping' but she also reports she has been getting OOB and ambulating in room and to bathroom independently without need
for an assistive device. Confirmed this with nursing. No acute PT needs so PT will sign off.
--- NOTE | 2024-09-15 16:20 | CM ---
Reviewed the chart notes and spoke with the patient and her spouse at the bedside. Patient resides with spouse in a two story home with one step. The patient has a CPAP machine. No VN/SNF in the past. Confirmed pharmacy is [facility]. CM
continues to be available to patient/family and is monitoring medical plan for needs at discharge.
Plan: Discharge to home when medically stable. No needs anticipated.
[2024-09-15] MEDS: FLUSH (NSS) 3 FLUSH IV (16:38)
[2024-09-15] MEDS: ZYRTEC 10 MG PO (23:03)
[2024-09-15] MEDS: LIPITOR 40 MG PO (23:03)
[2024-09-15] MEDS: AMBIEN 10 MG PO (23:03)
[2024-09-15 23:23] VITALS: BP 117/72
[2024-09-16] MEDS: SYNTHROID 175 MCG PO (05:01)
[2024-09-16] MEDS: TYLENOL 1000 MG PO ×3 (05:01→20:30)
[2024-09-16] MEDS: ROXICODONE 5 MG PO ×4 (05:02→23:21)
--- NOTE | 2024-09-16 06:07 | PTCARENOTE ---
pt was educated at length regarding mobility, motility and pain medication. Pt was given oxy PRN and offered suppository , pt accepted oxy and declined suppository and stated she usually has a BM every couple of days. Education included the use of
Dilaudid vs oxy and mobility for her BM.
[2024-09-16] MEDS: SYMBICORT 160/4.5 MCG INHALER 2 PUFF INH ×2 (06:32→20:27)
[2024-09-16 07:09] LABS: Blood Urea Nitrogen 22 mg/dl (7-17); Calcium 9.6 mg/dl (8.4-10.2); Carbon Dioxide 24 mmol/L (22-30); Chloride 106 mmol/L (98-107); Estimated Creatinine Clearance 69 ml/min; Glucose 122 mg/dl (70-99); Potassium 4.3 mmol/L (3.5-5.1); Sodium 137 mmol/L (135-145); eGFR > 60.00
[2024-09-16 07:20] VITALS: BP 113/69
[2024-09-16] MEDS: CELEXA 40 MG PO (09:07)
[2024-09-16] MEDS: KEFLEX 250 MG PO ×4 (09:07→21:05)
[2024-09-16] MEDS: THERAGRAN 1 TABLET PO (09:07)
[2024-09-16] MEDS: TOPAMAX 100 MG PO ×2 (09:07→20:30)
[2024-09-16] MEDS: VITAMIN D3 (cholecalciferol) 50 MCG PO (09:07)
[2024-09-16] MEDS: FLEXERIL 5 MG PO ×3 (09:07→21:05)
[2024-09-16] MEDS: LOW STRENGTH ASPIRIN 81 MG PO (09:08)
[2024-09-16] MEDS: DECADRON 4 MG IV (09:08)
[2024-09-16] MEDS: HEPARIN 5000 UNITS SC ×2 (09:08→20:30)
[2024-09-16] MEDS: PROTONIX 40 MG PO (09:08)
[2024-09-16] MEDS: SENOKOT 17.2 MG PO ×2 (09:08→20:30)
[2024-09-16] MEDS: DILAUDID 1 MG IV (09:09)
[2024-09-16] MEDS: LIDOCAINE 4% PATCH 1 PATCH TOPICAL (09:09)
[2024-09-16] MEDS: MIRALAX 17 GRAMS PO (09:09)
--- NOTE | 2024-09-16 11:25 | W.PN.HOSP.TC ---
Today's Communication/Plan
-
MRI of the C-spine
PT OT
Pain control
Bowel regimen
discharge plan after MRI
Assessment / Plan
Assessment / Plan
64-year-old female presented to the hospital with back pain. She is chronic back pain and had a spinal stimulator placed 4 to 5 years ago.
3 weeks ago she started having more pain pain is also in the right upper back neck radiates to the right shoulder. She also had some chest pain
CTA-no thoracic aortic dissection or aneurysm. Minimal calcific atherosclerotic plaque in the thoracic aorta. Spinal stimulator wires terminating T6-T7. No AAA, 1.2 cm nonobstructing staghorn calculus in the midpole of the left kidney. Mild to
moderate chronic bilateral renal disease. Moderate amount of fecal material throughout the colon. Moderate diverticulosis in the sigmoid colon. Grade 1 anterolisthesis L5 on S1. Spinal stimulator in the left posterior subcutaneous fat of the
lower back
CVS: S1-S2 normal
Chest: CTA B/L
Abdomen: Soft, NT, Bowel sounds present
Extremities: No edema, normal pulses
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
Pain slightly better today in the back. She has pain in the neck
# Acute on chronic lower back pain and upper back pain
Patient has a spinal stimulator
C5-6 spinal stenosis and disc herniation on prior MRI
CT scan showing spinal stimulator wires terminating the posterior central thoracic spinal canal
Medrol Dosepak started on 09/09 , completed. Taper Decadron
PT OT
Muscle relaxants add Flexeril in the place of caroxazone
Continue Tylenol, lidocaine patch, Dilaudid
She sees at [facility]. I have left a message yesterday for call back
Obtain MRI of the C-spine
Lumbar spine MRI reviewed without any acute changes for the pain
# Chest discomfort on admission EKG noted. Neg for ischemia on repeat also. Troponin negative
Likely from Radiculopathy/Muscular.
# UTI-continue Keflex which she was on prior to admission
nonobstructing staghorn calculus in the left kidney
ER spoke with urology-no interventions planned
Discussed about outpatient urology follow-up
Patient is aware that she needs to follow-up
# Acute kidney injury-hold further NSAIDs. IV fluids
Contrast-induced nephropathy needs to be considered
Creatinine improved
# Hyperlipidemia-continue statin
# Asthma-stable continue as needed albuterol
# Hypothyroidism-continue Synthroid
# Migraines-continue Topamax
# Constipation-bowels regimen
# Diverticulosis
# Sleep apnea-CPAP
# Anxiety and depression-continue Ativan and citalopram
# Insomnia-continue Ambien
# DVT prophylaxis-subcutaneous heparin
# Full code
09/14/24-D/W at bed side
Called and left a message for [facility] yesterday awaiting callback from provider
Anticipated Discharge: Within 24 hours
Subjective/Interval History
-
Date of Service: September 16, 2024
Objective Data
-
Labs:
Laboratory Results
09/16/24
06:18
Sodium 137
Potassium 4.3
Chloride 106
Carbon Dioxide 24
BUN 22 H
Creatinine 0.9
Glucose 122 H
Calcium 9.6
Vital Signs:
Vital Signs
Temp Pulse Resp BP Pulse Ox
98.1 F 76 16 113/69 97
09/16/24 07:20 09/16/24 07:20 09/16/24 07:20 09/16/24 07:20 09/16/24 07:20
I&O
09/15/24 09/16/24 09/17/24
06:59 06:59 06:59
Intake Total 1895 / 1895 1200 / 1200
Output Total 600 / 600 800 / 800
Balance 1295 / 1295 400 / 400
[2024-09-16] MEDS: MILK OF MAGNESIA 30 ML PO (12:36)
[2024-09-16] MEDS: COLACE 100 MG PO ×2 (12:36→20:30)
[2024-09-16 16:28] VITALS: BP 133/90
[2024-09-16] MEDS: DECADRON 2 MG IV ×2 (18:09→23:20)
[2024-09-16] MEDS: LIPITOR 40 MG PO (21:05)
[2024-09-16] MEDS: ZYRTEC 10 MG PO (21:05)
[2024-09-16] MEDS: AMBIEN 10 MG PO (21:10)
[2024-09-16 23:45] VITALS: BP 119/66
[2024-09-17] MEDS: TYLENOL 1000 MG PO ×3 (04:26→20:00)
[2024-09-17 07:40] VITALS: BP 145/80
[2024-09-17] MEDS: SYMBICORT 160/4.5 MCG INHALER 2 PUFF INH ×2 (08:54→18:40)
[2024-09-17] MEDS: DECADRON 2 MG IV ×3 (09:17→23:48)
[2024-09-17] MEDS: FLEXERIL 5 MG PO ×3 (09:19→21:15)
[2024-09-17] MEDS: CELEXA 40 MG PO (09:19)
[2024-09-17] MEDS: MIRALAX 17 GRAMS PO (09:22)
[2024-09-17] MEDS: COLACE 100 MG PO ×2 (09:22→20:00)
[2024-09-17] MEDS: ROXICODONE 5 MG PO ×4 (09:22→23:50)
[2024-09-17] MEDS: SENOKOT 17.2 MG PO ×2 (09:23→20:00)
[2024-09-17] MEDS: KEFLEX 250 MG PO ×4 (09:24→21:15)
[2024-09-17] MEDS: PROTONIX 40 MG PO (09:24)
[2024-09-17] MEDS: LOW STRENGTH ASPIRIN 81 MG PO (09:25)
[2024-09-17] MEDS: TOPAMAX 100 MG PO ×2 (09:25→20:00)
[2024-09-17] MEDS: THERAGRAN 1 TABLET PO (09:25)
[2024-09-17] MEDS: LIDOCAINE 4% PATCH 1 PATCH TOPICAL (09:26)
[2024-09-17] MEDS: HEPARIN 5000 UNITS SC ×3 (09:26→23:49)
--- NOTE | 2024-09-17 12:54 | W.PN.HOSP.TC ---
Today's Communication/Plan
-
Start Celebrex
Labs ordered
Treat constipation
Assessment / Plan
Assessment / Plan
64-year-old female presented to the hospital with back pain. She is chronic back pain and had a spinal stimulator placed 4 to 5 years ago.
3 weeks ago she started having more pain pain is also in the right upper back neck radiates to the right shoulder. She also had some chest pain
CTA-no thoracic aortic dissection or aneurysm. Minimal calcific atherosclerotic plaque in the thoracic aorta. Spinal stimulator wires terminating T6-T7. No AAA, 1.2 cm nonobstructing staghorn calculus in the midpole of the left kidney. Mild to
moderate chronic bilateral renal disease. Moderate amount of fecal material throughout the colon. Moderate diverticulosis in the sigmoid colon. Grade 1 anterolisthesis L5 on S1. Spinal stimulator in the left posterior subcutaneous fat of the
lower back
CVS: S1-S2 normal
Chest: CTA B/L
Abdomen: Soft, NT, Bowel sounds present
Extremities: No edema
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
Eating lunch when I walked in. Stated that pain is worse.
# Acute on chronic lower back pain and upper back pain
Patient has a spinal stimulator
MRI of the cervical spine was reviewed with neurosurgery on-call yesterday no interventions recommended
Medrol Dosepak started on 09/09 , completed. Decadron started taper Decadron
PT OT
Muscle relaxants add Flexeril in the place of caroxazone
Continue Tylenol, lidocaine patch, oxycodone, add Celebrex discussed with the patient
She sees at [facility]. I have left a message on for call back did not hear back
MRI of the lumbar spine and cervical spine discussed with the patient
# Chest discomfort on admission EKG noted. Neg for ischemia on repeat also. Troponin negative
Likely from Radiculopathy/Muscular.
No further complaints
# UTI-continue Keflex which she was on prior to admission
nonobstructing staghorn calculus in the left kidney
ER spoke with urology-no interventions planned
Discussed about outpatient urology follow-up
Patient is aware that she needs to follow-up
# Acute kidney injury-
Creatinine improved
Contrast-induced nephropathy needs to be considered
Check BMP today as we are starting Celebrex
# Constipation-no bowel movements charted. Mag citrate ordered
# Hyperlipidemia-continue statin
# Asthma-stable continue as needed albuterol
# Hypothyroidism-continue Synthroid
# Migraines-continue Topamax
# Diverticulosis
# Sleep apnea-CPAP
# Anxiety and depression-continue Ativan and citalopram
# Insomnia-continue Ambien
# DVT prophylaxis-subcutaneous heparin
# Full code
09/14/24-D/W from patient's cell phone
Discussed with nursing. Per discussion with nursing mostly her pain is controlled with oxycodone.
She does not feel comfortable with discharge and follow-up with pain management who she has an appointment on September 20
Anticipated Discharge: Within 24 hours
Subjective/Interval History
-
Date of Service: September 17, 2024
Objective Data
-
Labs:
Laboratory Results
09/17/24
12:52
Plt Count Pending
Vital Signs:
Vital Signs
Temp Pulse Resp BP Pulse Ox
97.7 F 57 16 145/80 98
09/17/24 07:40 09/17/24 08:57 09/17/24 08:57 09/17/24 07:40 09/17/24 08:57
I&O
09/16/24 09/17/24 09/18/24
06:59 06:59 06:59
Intake Total 1200 / 1200 1200 / 1200
Output Total 800 / 800
Balance 400 / 400 1200 / 1200
[2024-09-17] MEDS: VITAMIN D3 (cholecalciferol) 50 MCG PO (13:42)
[2024-09-17] MEDS: CELEBREX 100 MG PO ×2 (13:45→20:00)
[2024-09-17] MEDS: PEPCID 20 MG PO ×2 (13:47→20:00)
[2024-09-17] MEDS: CITROMA 300 ML PO (13:57)
[2024-09-17 14:03] LABS: Platelet Count 272 10^3/uL (130-400)
[2024-09-17 15:35] VITALS: BP 127/70
[2024-09-17] MEDS: TORADOL 10 MG IV (17:55)
[2024-09-17] MEDS: ZYRTEC 10 MG PO (21:15)
[2024-09-17] MEDS: LIPITOR 40 MG PO (21:15)
[2024-09-17] MEDS: AMBIEN 10 MG PO (21:22)
[2024-09-17 23:25] VITALS: BP 140/76
[2024-09-18] MEDS: TYLENOL 1000 MG PO ×3 (04:00→20:03)
[2024-09-18 07:25] VITALS: BP 128/71
[2024-09-18] MEDS: ROXICODONE 5 MG PO ×2 (07:27→11:42)
[2024-09-18] MEDS: LIDOCAINE 4% PATCH 1 PATCH TOPICAL (07:56)
[2024-09-18] MEDS: MIRALAX 17 GRAMS PO (07:56)
[2024-09-18] MEDS: SENOKOT PO (07:58)
[2024-09-18] MEDS: COLACE PO (07:58)
[2024-09-18] MEDS: HEPARIN 5000 UNITS SC ×2 (08:00→16:04)
[2024-09-18] MEDS: DECADRON 2 MG IV ×2 (08:00→16:01)
[2024-09-18] MEDS: PROTONIX 40 MG PO (08:02)
[2024-09-18] MEDS: CELEXA 40 MG PO (08:02)
[2024-09-18] MEDS: FLEXERIL 5 MG PO ×3 (08:02→22:30)
[2024-09-18] MEDS: KEFLEX 250 MG PO ×4 (08:03→22:30)
[2024-09-18] MEDS: THERAGRAN 1 TABLET PO (08:03)
[2024-09-18] MEDS: CELEBREX 100 MG PO (08:03)
[2024-09-18] MEDS: VITAMIN D3 (cholecalciferol) 50 MCG PO (08:04)
[2024-09-18] MEDS: LOW STRENGTH ASPIRIN 81 MG PO (08:04)
[2024-09-18] MEDS: TOPAMAX 100 MG PO ×2 (08:04→20:03)
[2024-09-18] MEDS: PEPCID 20 MG PO ×2 (08:05→20:03)
[2024-09-18] MEDS: SYMBICORT 160/4.5 MCG INHALER 2 PUFF INH ×2 (09:05→19:21)
[2024-09-18 09:56] LABS: Blood Urea Nitrogen 31 mg/dl (7-17); Calcium 9.5 mg/dl (8.4-10.2); Carbon Dioxide 25 mmol/L (22-30); Chloride 105 mmol/L (98-107); Estimated Creatinine Clearance 52 ml/min; Glucose 91 mg/dl (70-99); Potassium 4.2 mmol/L (3.5-5.1); Sodium 140 mmol/L (135-145); eGFR 50.23
[2024-09-18] MEDS: TUMS CHEWABLE TABLET 200 MG PO (12:15)
[2024-09-18] MEDS: NSS 1000 IV (12:27)
[2024-09-18 13:32] LABS: Troponin I 0.013 ng/ml
--- NOTE | 2024-09-18 14:45 | W.PN.HOSP.TC ---
Today's Communication/Plan
-
IV fluids
BMP in the morning
Oxycodone for pain
Echo in a.m.
Assessment / Plan
Assessment / Plan
64-year-old female presented to the hospital with back pain. She is chronic back pain and had a spinal stimulator placed 4 to 5 years ago.
3 weeks ago she started having more pain pain is also in the right upper back neck radiates to the right shoulder. She also had some chest pain
CTA-no thoracic aortic dissection or aneurysm. Minimal calcific atherosclerotic plaque in the thoracic aorta. Spinal stimulator wires terminating T6-T7. No AAA, 1.2 cm nonobstructing staghorn calculus in the midpole of the left kidney. Mild to
moderate chronic bilateral renal disease. Moderate amount of fecal material throughout the colon. Moderate diverticulosis in the sigmoid colon. Grade 1 anterolisthesis L5 on S1. Spinal stimulator in the left posterior subcutaneous fat of the
lower back
CVS: S1-S2 normal
Chest: CTA B/L
Abdomen: Soft, NT, Bowel sounds present
Extremities: No edema
LAND[employer]INTENA[employer]CE [employer]: No sensory or motor deficits noted on lower extremities or upper extremities
Diarrhea since last night
# Acute on chronic lower back pain and upper back pain
Patient has a spinal stimulator
MRI of the cervical spine was reviewed with neurosurgery on-call yesterday no interventions recommended
Medrol Dosepak started on 09/09 , completed. Decadron started taper Decadron
PT OT
Muscle relaxants add Flexeril in the place of caroxazone
Continue Tylenol, lidocaine patch, oxycodone, add Celebrex discussed with the patient
She sees at [facility]. I have left a message on for call back did not hear back
MRI of the lumbar spine and cervical spine discussed with the patient
# Chest discomfort on admission EKG noted. Neg for ischemia on repeat also. Troponin negative
Likely from Radiculopathy/Muscular.
Had some heartburn
EKG without any ischemia. Check 2 sets of troponins
Check echo tomorrow
# UTI-continue Keflex which she was on prior to admission
nonobstructing staghorn calculus in the left kidney
ER spoke with urology-no interventions planned
Discussed about outpatient urology follow-up
Patient is aware that she needs to follow-up
# Acute kidney injury-
Creatinine 1.2 again
Possibly secondary to diarrhea
Contrast-induced nephropathy needs to be considered
Stop Celebrex
IV fluids
# Constipation-resolved
# Hyperlipidemia-continue statin
# Asthma-stable continue as needed albuterol
# Hypothyroidism-continue Synthroid
# Migraines-continue Topamax
# Diverticulosis
# Sleep apnea-CPAP
# Anxiety and depression-continue Ativan and citalopram
# Insomnia-continue Ambien
# DVT prophylaxis-subcutaneous heparin
# Full code
09/17/24-D/W from patient's cell phone
Discussed with nursing.
Anticipated Discharge: Within 24 hours
Subjective/Interval History
-
Date of Service: September 18, 2024
Objective Data
-
Labs:
Laboratory Results
09/18/24
09:27
Sodium 140
Potassium 4.2
Chloride 105
Carbon Dioxide 25
BUN 31 H
Creatinine 1.2 H
Glucose 91
Calcium 9.5
Vital Signs:
Vital Signs
Temp Pulse Resp BP Pulse Ox
97.5 F 54 16 128/71 95
09/18/24 07:25 09/18/24 09:08 09/18/24 09:08 09/18/24 07:25 09/18/24 09:08
I&O
09/17/24 09/18/24 09/19/24
06:59 06:59 06:59
Intake Total 1200 / 1200 2200 / 2200
Balance 1200 / 1200 2200 / 2200
[2024-09-18 15:29] VITALS: BP 128/74
[2024-09-18] MEDS: ROXICODONE 10 MG PO (16:07)
[2024-09-18 18:36] LABS: Troponin I < 0.012 ng/ml
[2024-09-18] MEDS: SENOKOT 17.2 MG PO (20:03)
[2024-09-18] MEDS: COLACE 100 MG PO (20:03)
[2024-09-18] MEDS: AMBIEN 10 MG PO (22:30)
[2024-09-18] MEDS: ZYRTEC 10 MG PO (22:30)
[2024-09-18] MEDS: LIPITOR 40 MG PO (22:30)
[2024-09-18 23:45] VITALS: BP 109/55
[2024-09-19] MEDS: HEPARIN 5000 UNITS SC ×2 (00:07→08:41)
[2024-09-19] MEDS: DECADRON 2 MG IV ×2 (00:09→08:41)
[2024-09-19] MEDS: TYLENOL 1000 MG PO ×2 (04:11→12:07)
[2024-09-19] MEDS: SYNTHROID 175 MCG PO (06:00)
[2024-09-19 07:25] VITALS: BP 116/62
[2024-09-19] MEDS: SYMBICORT 160/4.5 MCG INHALER 2 PUFF INH (08:14)
[2024-09-19] MEDS: LIDOCAINE 4% PATCH 1 PATCH TOPICAL (08:40)
[2024-09-19] MEDS: PROTONIX 40 MG PO (08:40)
[2024-09-19] MEDS: FLEXERIL 5 MG PO ×2 (08:40→15:10)
[2024-09-19] MEDS: PEPCID 20 MG PO (08:40)
[2024-09-19] MEDS: VITAMIN D3 (cholecalciferol) 50 MCG PO (08:40)
[2024-09-19] MEDS: CELEXA 40 MG PO (08:40)
[2024-09-19] MEDS: TOPAMAX 100 MG PO (08:41)
[2024-09-19] MEDS: LOW STRENGTH ASPIRIN 81 MG PO (08:41)
[2024-09-19] MEDS: KEFLEX 250 MG PO ×2 (08:41→12:07)
[2024-09-19] MEDS: THERAGRAN 1 TABLET PO (08:41)
[2024-09-19] MEDS: MIRALAX PO (08:42)
[2024-09-19] MEDS: COLACE PO (08:42)
[2024-09-19] MEDS: SENOKOT PO (08:42)
[2024-09-19 08:44] LABS: Blood Urea Nitrogen 24 mg/dl (7-17); Calcium 9.1 mg/dl (8.4-10.2); Carbon Dioxide 23 mmol/L (22-30); Chloride 107 mmol/L (98-107); Estimated Creatinine Clearance 56 ml/min; Glucose 102 mg/dl (70-99); Potassium 4.4 mmol/L (3.5-5.1); Sodium 138 mmol/L (135-145); eGFR 55.76
[2024-09-19] MEDS: ROXICODONE 10 MG PO ×2 (08:49→14:48)
--- NOTE | 2024-09-19 10:48 | W.PN.HOSP.TC ---
Addendum entered and electronically signed by Nirav Marquez MD 09/19/24 15:56:
Echo reviewed Will discharge as planned
D/W Cards
More than 30 minutes spent in discharge including
Final examination of the patient
Summarizing hospital stay
Instructions for continuing care to all relevant caregivers
Preparation of discharge records, prescriptions, and referral forms
Total time spent (in minutes): 36 min
Addendum entered and electronically signed by Nirav Marquez MD 09/19/24 15:36:
Dictation- [id number]
Addendum entered and electronically signed by Nirav Marquez MD 09/19/24 11:00:
Please provide CD of the MRIs she has had here to take to [facility]
Original Note:
Today's Communication/Plan
-
ECHO
Discharge planning.
Assessment / Plan
Assessment / Plan
64-year-old female presented to the hospital with back pain. She is chronic back pain and had a spinal stimulator placed 4 to 5 years ago.
3 weeks ago she started having more pain pain is also in the right upper back neck radiates to the right shoulder. She also had some chest pain
CTA-no thoracic aortic dissection or aneurysm. Minimal calcific atherosclerotic plaque in the thoracic aorta. Spinal stimulator wires terminating T6-T7. No AAA, 1.2 cm nonobstructing staghorn calculus in the midpole of the left kidney. Mild to
moderate chronic bilateral renal disease. Moderate amount of fecal material throughout the colon. Moderate diverticulosis in the sigmoid colon. Grade 1 anterolisthesis L5 on S1. Spinal stimulator in the left posterior subcutaneous fat of the
lower back
CVS: S1-S2 normal
Chest: CTA B/L
Abdomen: Soft, NT, Bowel sounds present
Extremities: No edema
MANAGER CODING: No sensory or motor deficits noted on lower extremities or upper extremities
Pain better per pt. Wants to go home.
# Acute on chronic lower back pain and upper back pain
Patient has a spinal stimulator
MRI of the cervical spine was reviewed with neurosurgery on-call yesterday no interventions recommended
Medrol Dosepak started on 09/09 , completed. Decadron started taper Decadron
PT OT
Muscle relaxants add Flexeril in the place of caroxazone
Continue Tylenol, lidocaine patch, oxycodone, add Celebrex discussed with the patient
She sees at [facility]. I have left a message on for call back did not hear back
MRI of the lumbar spine and cervical spine discussed with the patient
# Chest discomfort on admission EKG noted. Neg for ischemia on repeat also. Troponin negative
Likely from Radiculopathy/Muscular.
Had some heartburn
EKG without any ischemia. 2 sets of troponins neg
Check echo
If has symptoms Pt to F/U with cards as OP
# UTI-continue Keflex which she was on prior to admission
nonobstructing staghorn calculus in the left kidney
ER spoke with urology-no interventions planned
Discussed about outpatient urology follow-up
Patient is aware that she needs to follow-up
# Acute kidney injury-
Creatinine 1.2 again
Possibly secondary to diarrhea
Contrast-induced nephropathy needs to be considered
Stopped Celebrex
S/P IV fluids- Trended down
Rpt as OP in 2-3 days
Script given
# Constipation-resolved
# Hyperlipidemia-continue statin
# Asthma-stable continue as needed albuterol
# Hypothyroidism-continue Synthroid
# Migraines-continue Topamax
# Diverticulosis
# Sleep apnea-CPAP
# Anxiety and depression-continue Ativan and citalopram
# Insomnia-continue Ambien
# DVT prophylaxis-subcutaneous heparin
# Full code
09/17/24-D/W from patient's cell phone
Discussed with nursing.
D/W ECHO to get pt done sooner.
She has an appt with [facility] tomorrow
Anticipated Discharge: Today
Subjective/Interval History
-
Date of Service: September 19, 2024
Objective Data
-
Labs:
Laboratory Results
09/19/24
07:49
Sodium 138
Potassium 4.4
Chloride 107
Carbon Dioxide 23
BUN 24 H
Creatinine 1.1 H
Glucose 102 H
Calcium 9.1
Vital Signs:
Vital Signs
Temp Pulse Resp BP Pulse Ox
97.4 F 69 14 116/62 96
09/19/24 07:25 09/19/24 08:16 09/19/24 08:16 09/19/24 07:25 09/19/24 08:16
I&O
09/18/24 09/19/24 09/20/24
06:59 06:59 06:59
Intake Total 2200 / 2200 3180 / 3180
Balance 2200 / 2200 3180 / 3180
--- NOTE | 2024-09-19 11:26 | CM ---
Reviewed the chart notes and spoke with the patient at the bedside. IMM reviewed. The patient anticipates being discharged to home today with spouse providing transportation. CM continues to be available to patient/family and is monitoring
medical plan for needs at discharge.
Plan: Discharge to home today. No needs identified.
[2024-09-19 15:10] VITALS: BP 113/61
[2024-09-19] MEDS: HEPARIN SC (15:41)
== END 2024-09-19 17:20 | disposition home or self-care (01) | DRG 552 ==
LOC: 2 SOUTH 08:11
PROVIDERS: Physician Assistant; ADMITTING PHYSICIAN Hospitalist; ATTENDING PHYSICIAN Hospitalist; EMERGENCY PHYSICIAN Emergency Medicine; FAMILY PHYSICIAN Family Medicine
DX: M47.22 Other spondylosis with radiculopathy, cervical region (principal); N39.0 Urinary tract infection, site not specified; N17.9 Acute kidney failure, unspecified; M48.02 Spinal stenosis, cervical region; M50.122 Cervical disc disorder at C5-C6 level with radiculopathy; N20.0 Calculus of kidney; K21.9 Gastro-esophageal reflux disease without esophagitis; Z87.442 Personal history of urinary calculi; Z87.891 Personal history of nicotine dependence; E78.00 Pure hypercholesterolemia, unspecified; J45.909 Unspecified asthma, uncomplicated; E03.9 Hypothyroidism, unspecified; G43.909 Migraine, unspecified, not intractable, without status migrainosus; G47.33 Obstructive sleep apnea (adult) (pediatric); Z79.82 Long term (current) use of aspirin; Z79.899 Other long term (current) drug therapy; F32.A Depression, unspecified; F41.9 Anxiety disorder, unspecified; G47.00 Insomnia, unspecified
CPT/HCPCS: 71275; 72141; 72148; 74174; 80048; 80053; 81003; 81015; 84300; 84484; 85025; 85049; 87086; 87798; 93005; 93306; 94640; 96374; 96375; 96376; 97162; 97166; 99285; Q9967

== ENCOUNTER 2024-10-05 06:32 | Day surgery (SDC) | payer OTHER, SELFPAY ==
--- NOTE | 2024-10-03 11:58 | PTCARENOTE ---
Patient states she benton s recent shingles outbreak to left thigh- stated outbreak is scabbed. Instructed to notify surgeon if the worsen or she should experience any blistering. Kavya @ Dr. Flores office notified of same.
[2024-10-05] VITALS (8 sets, daily range): BP systolic 103–130; BP diastolic 54–80; BMI 36.7
[2024-10-05] MEDS: NORMOSOL-R/PLASMALYTE-A 1000 IV (08:54)
[2024-10-05] MEDS: Pyridium 200 MG PO (10:57)
== END 2024-10-05 11:54 | disposition home or self-care (01) ==
LOC: SDS 06:32
PROVIDERS: ATTENDING PHYSICIAN Specialist
PROC: 0TC48ZZ Extirpation of Matter from Left Kidney Pelvis, Via Natural or Artificial Opening Endoscopic (ICD-10-PCS; 2024-10-05)
PROC: 0T778DZ Dilation of Left Ureter with Intraluminal Device, Via Natural or Artificial Opening Endoscopic (ICD-10-PCS; 2024-10-05)
DX: N20.0 Calculus of kidney (principal)
CPT/HCPCS: 52356; 74018; 76000; C1894; C2617

== ENCOUNTER 2024-10-08 16:01 | Emergency (ER) | payer OTHER, SELFPAY ==
[2024-10-08 16:13] VITALS: BP 121/66
[2024-10-08 17:06] LABS: % Basophils 0.4 % (0-2); % Eosinophils 0.7 % (0-6); % Immature Granulocytes 0.4 % (0-0.5); % Lymphocytes 11.3 % (20.5-51.1); % Neutrophils 80.2 % (42.2-75.2); Absolute Lymphocytes 0.6 10^3/uL (1.2-3.4); Absolute Monocytes 0.4 10^3/uL (0.1-0.6); Absolute Neutrophils 4.5 10^3/uL (1.4-6.5); Hemoglobin 13.3 g/dL (12.0-16.0); Mean Corp Hgb Conc. 34.1 g/dL (33.0-37.0); Mean Corpuscular Hgb 32.1 pg (27.0-31.0); Mean Corpuscular Volume 94.2 fL (81.0-99.0); Mean Platelet Volume 8.4 fL (7.4-10.4); Nucleated Red Blood Cells % 0 %; Platelet Count 202 10^3/uL (130-400); Red Blood Cell Count 4.14 10^6/uL (4.20-5.40); Red Cell Dist. Width 13.2 % (11.5-14.5); White Blood Cell Count 5.6 10^3/uL (4.8-10.8)
[2024-10-08 17:17] LABS: ALT (SGPT) 42 U/L (0-35); AST (SGOT) 32 U/L (14-36); Albumin 3.8 g/dl (3.5-5.0); Alkaline Phosphatase 124 U/L (38-126); Blood Urea Nitrogen 20 mg/dl (7-17); Calcium 8.8 mg/dl (8.4-10.2); Carbon Dioxide 22 mmol/L (22-30); Chloride 103 mmol/L (98-107); Glucose 97 mg/dl (70-99); Potassium 3.3 mmol/L (3.5-5.1); Sodium 134 mmol/L (135-145); Total Bilirubin 1.5 mg/dl (0.2-1.3); Total Protein 6.3 g/dl (6.3-8.2); eGFR > 60.00
--- NOTE | 2024-10-08 17:58 | ED.GENMED ---
History of Present Illness
<Dionte Velasquez MD, Resident - Last Filed: 10/08/24 23:06>
General
Chief Complaint: Abdominal Symptoms
Source: patient and spouse
Exam Limitations: none
Time Seen by Provider: 10/08/24 16:26
Nursing documentation reviewed up to this point in time: agreed with
History of Present Illness
History of Present Illness:
64-year-old female with PMH of chronic back pain with spinal stimulator, hyperlipidemia, hypothyroidism, nephrolithiasis s/p left laser lithotripsy and stenting 10/05/2024, who presented to the emergency department today with left flank pain that
started about 24 hours ago. Patient reports nausea, vomiting and diarrhea, chills that started at dinnertime yesterday. Patient stated that she felt fine for the past 2 days since the procedure. She reports intermittent, sharp left flank pain
rated 9/10, does not radiate. Pain is worse with movement but reports that it is constant most of the time. She reports that her nausea has resolved, however she has been having multiple episodes of watery diarrhea that has not resolved. She
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 Patient does not know if there is any blood in the diarrhea or urine. She denies chest pain, shortness of breath,
urinary symptoms, fever.
Past History
<Dionte Velasquez MD, Resident - Last Filed: 10/08/24 23:06>
Past History
ED Past Medical History: Asthma, Hypercholesterolemia, Hypothyroidism and Other
ED Past Surgical History: Cholecystectomy, Gynecological and Orthopedic
Social History
Tobacco: Former smoker
Alcohol: None
Drug: None
Personal:
Living: with family
Employment: Retired
Family History
Family History: Other
Review of Systems
<Dionte Velasquez MD, Resident - Last Filed: 10/08/24 23:06>
Review of Systems
All Other Systems: ROS reviewed and negative except as documented in HPI and ROS
Phy Exam
<Dionte Velasquez MD, Resident - Last Filed: 10/08/24 23:06>
General Physical Exam
General Presentation: well appearing
General age: appears stated age
General Skin: warm and dry
General Habitus: normal
General Mental: alert
Cardiovascular Exam
Cardiovascular Exam: regular rate/rhythm, no edema and no murmur
Pulmonary Exam
Pulmonary Exam: lungs clear, no respiratory distress, no crackles, no wheezing and no cough
Gastrointestinal Exam
Gastrointestinal Exam: normal bowel sounds, soft, non distended and cva tenderness (Left)
Neurological Exam
Neurological Exam: alert, oriented x3 and speech normal
Course
<Dionte Velasquez MD, Resident - Last Filed: 10/08/24 23:06>
Orders/Labs/Results
Orders:
Orders
10/08/24 16:15
Electrocardiogram (*1) Urgent
Reason for Study: Fatigue / Weakness
EKG- Treatment ONCE
10/08/24 16:52
Complete Blood Count/With Diff Urgent
Comprehensive Metabolic Panel Urgent
Lactic Acid Urgent
TSH Urgent
Comment: ADDON
Total Thyroxine Urgent
Comment: ADDON
Influenza A+B Rapid Molecular Urgent
[place] Source: Nasal Swab
Specimen Description:
Date Specimen was Collected: 10/08/24
Time Specimen was Collected: 16:15
10/08/24 17:58
0.9% Sodium Chloride 1000 ml [Nss] 1,000 ml IV BOLUS
Potassium Chloride [KCl] 40 meq 0.9% Sodium Chloride 250 ml [Nss] 250 ml IV NOW
10/08/24 18:08
Add On- LAB Stat
Tests Added?: TSH, T4
10/08/24 18:22
Ketorolac [Toradol] 15 mg IV NOW STA
10/08/24 19:32
Norovirus by PCR Stat
[place] Source: Feces/Stool
Specimen Description:
Date Specimen was Collected: 10/08/24
Time Specimen was Collected: 22:36
O&P Giardia/Cryptosporidium AG [Giardia/Cryptosporidium Ag] Stat
[place] Source: Feces/Stool
Specimen Description:
Date Specimen was Collected: 10/08/24
Time Specimen was Collected: 22:36
10/08/24 20:07
Potassium Chloride 10% Elixir [KCl Elixir] 40 meq PO NOW STA
10/08/24 20:09
Potassium Chloride [KCl] 40 meq .ROUTE .STK-MED ONE
10/08/24 21:00
Urinalysis Reflex To Culture Urgent
Date Specimen was Collected: 10/08/24
Time Specimen was Collected: 16:15
Urine Microscopic Reflex Cult Urgent
Urine Culture Urgent
[place] Source: U
Specimen Description:
Date Specimen was Collected: 10/08/24
Time Specimen was Collected: 16:15
Abnormal Lab Results
10/08/24 10/08/24
16:52 21:00
RBC 4.14 L 10^6/uL
(4.20-5.40)
MCH 32.1 H pg
(27.0-31.0)
Absolute Lymphs (auto) 0.6 L 10^3/uL
(1.2-3.4)
Neutrophils % 80.2 H %
(42.2-75.2)
Lymphocytes % 11.3 L %
(20.5-51.1)
Sodium 134 L mmol/L
(135-145)
Potassium 3.3 L mmol/L
(3.5-5.1)
BUN 20 H mg/dl
(7-17)
Total Bilirubin 1.5 H mg/dl
(0.2-1.3)
ALT 42 H U/L
(0-35)
Urine Ketones 1+ A
(Negative)
Ur Occult Blood Reflex 4+ A
(Negative)
Leukocyte Esterase Rfl 1+ A
(Negative)
Urine RBC 7-10 A /HPF
(0-2)
Urine Bacteria (Reflex) Few A
(Negative)
10/08/24 16:52
10/08/24 16:52
Vital Signs
Initial and Last Documented VS:
Initial Vital Signs
Temp Pulse Resp BP Pulse Ox
98.2 F 73 16 121/66 98
10/08/24 16:13 10/08/24 16:13 10/08/24 16:13 10/08/24 16:13 10/08/24 16:13
Last Documented Vital Signs
Temp Pulse Resp BP Pulse Ox
98.2 F 60 16 120/66 97
10/08/24 16:13 10/08/24 22:15 10/08/24 16:13 10/08/24 22:30 10/08/24 22:15
<Mike Miguel, DO - Last Filed: 10/09/24 00:18>
Orders/Labs/Results
Orders:
Orders
10/08/24 16:15
Electrocardiogram (*1) Urgent
Reason for Study: Fatigue / Weakness
EKG- Treatment ONCE
10/08/24 16:52
Complete Blood Count/With Diff Urgent
Comprehensive Metabolic Panel Urgent
Lactic Acid Urgent
TSH Urgent
Comment: ADDON
Total Thyroxine Urgent
Comment: ADDON
Influenza A+B Rapid Molecular Urgent
[place] Source: Nasal Swab
Specimen Description:
Date Specimen was Collected: 10/08/24
Time Specimen was Collected: 16:15
10/08/24 17:58
0.9% Sodium Chloride 1000 ml [Nss] 1,000 ml IV BOLUS
Potassium Chloride [KCl] 40 meq 0.9% Sodium Chloride 250 ml [Nss] 250 ml IV NOW
10/08/24 18:08
Add On- LAB Stat
Tests Added?: TSH, T4
10/08/24 18:22
Ketorolac [Toradol] 15 mg IV NOW STA
10/08/24 19:32
Norovirus by PCR Stat
[place] Source: Feces/Stool
Specimen Description:
Date Specimen was Collected: 10/08/24
Time Specimen was Collected: 22:36
O&P Giardia/Cryptosporidium AG [Giardia/Cryptosporidium Ag] Stat
[place] Source: Feces/Stool
Specimen Description:
Date Specimen was Collected: 10/08/24
Time Specimen was Collected: 22:36
10/08/24 20:07
Potassium Chloride 10% Elixir [KCl Elixir] 40 meq PO NOW STA
10/08/24 20:09
Potassium Chloride [KCl] 40 meq .ROUTE .STK-MED ONE
10/08/24 21:00
Urinalysis Reflex To Culture Urgent
Date Specimen was Collected: 10/08/24
Time Specimen was Collected: 16:15
Urine Microscopic Reflex Cult Urgent
Urine Culture Urgent
[place] Source: U
Specimen Description:
Date Specimen was Collected: 10/08/24
Time Specimen was Collected: 16:15
Abnormal Lab Results
10/08/24 10/08/24
16:52 21:00
RBC 4.14 L 10^6/uL
(4.20-5.40)
MCH 32.1 H pg
(27.0-31.0)
Absolute Lymphs (auto) 0.6 L 10^3/uL
(1.2-3.4)
Neutrophils % 80.2 H %
(42.2-75.2)
Lymphocytes % 11.3 L %
(20.5-51.1)
Sodium 134 L mmol/L
(135-145)
Potassium 3.3 L mmol/L
(3.5-5.1)
BUN 20 H mg/dl
(7-17)
Total Bilirubin 1.5 H mg/dl
(0.2-1.3)
ALT 42 H U/L
(0-35)
Urine Ketones 1+ A
(Negative)
Ur Occult Blood Reflex 4+ A
(Negative)
Leukocyte Esterase Rfl 1+ A
(Negative)
Urine RBC 7-10 A /HPF
(0-2)
Urine Bacteria (Reflex) Few A
(Negative)
10/08/24 16:52
10/08/24 16:52
Vital Signs
Initial and Last Documented VS:
Initial Vital Signs
Temp Pulse Resp BP Pulse Ox
98.2 F 73 16 121/66 98
10/08/24 16:13 10/08/24 16:13 10/08/24 16:13 10/08/24 16:13 10/08/24 16:13
Last Documented Vital Signs
Temp Pulse Resp BP Pulse Ox
98.2 F 60 16 120/66 97
10/08/24 16:13 10/08/24 22:15 10/08/24 16:13 10/08/24 22:30 10/08/24 22:15
<Dionte Velasquez MD, Resident - Last Filed: 10/08/24 23:06>
MDM/Problems Addressed
MDM/Problems Addressed:
64-year-old female with PMH of hypothyroidism, nephrolithiasis s/p left laser lithotripsy and stenting 10/05/2024, who presented to the emergency department today with left flank pain that started about 24 hours ago. On physical exam, she is in no
acute distress but reports that she is cold. Differential diagnosis include stent occlusion, stent infection, recurrent kidney stone. Her diarrhea could be due to acute viral gastroenteritis which may be unrelated to flank pain. Acute bacterial
process less likely; she is afebrile with normal white cell count although with some left shift, but does not look septic. His BMP is remarkable for hyponatremia, hypokalemia. Will check urinalysis, give a bolus of IV normal saline, replace her
potassium. Will also check TSH with reflex to T4 given her symptoms. There is currently no indication to pursue any imaging at this point.
Chronic conditions affecting care: Kidney disease
Acute Exacerbation and/or Progression of Chronic Illness: Kidney disease
<Dionte Velasquez MD, Resident - Last Filed: 10/08/24 23:06>
*EKG
Interpreted by ED Provider?: Yes
EKG Intrepretation Date: 10/08/24
EKG Intrepretation Time: 16:15
Interpretation: abnormal
Comparison EKG: changes noted (New premature supraventricular complexes)
Heart Rate: 63
Rate: normal
Rhythm: sinus
Interval: normal interval
QRS Pattern: normal QRS
Ischemia: no ischemia
*Critical Care Note
Total Time (30-74mins, 75-104mins- exclusive of procedures): Not Applicable
Data Reviewed
Review of Other/Old Records Reveals: Labs (Sodium 138) and Radiology Studies (Mild to moderate chronic bilateral renal disease)
<Mike Miguel DO - Last Filed: 10/09/24 00:18>
*Pulse Oximetry
Patient hypoxic: no
*Director Compliance Interpretation
Rate: normal
Interpretation: normal
Rhythm: sinus
Data Reviewed
Prescriptions/Medications Considered But Not Given:
Considered antibiotics but urine clean and white count normal
<Dionte Velasquez MD, Resident - Last Filed: 10/08/24 23:06>
Update Note
Update Note:
Patient feeling better, hungry, however still complains of being cold. Her urinalysis positive for blood and RBC which is expected given her recent instrumentation. Patient is stable for discharge to follow-up with primary care physician and
urology.
ED Attending Note
<Dionte Velasquez MD, Resident - Last Filed: 10/08/24 23:06>
-
Portions of this chart may have been created with voice recognition software.� Occasional wrong word or��sound alike� substitutions may have occurred due to the inherent limitations of voice recognition software.
<Mike Miguel, DO - Last Filed: 10/09/24 00:18>
ED Attending Note
Patient seen and examined by attending physician: Yes
I performed a history and physical exam of patient and discussed management with resident, I reviewed resident's note and agree with documented findings and plan of care.: Yes
ED Attending Note:
64-year-old female recently had laser lithotripsy and ureteral stent placed. Presents with above complaints. Patient appears well and is awake and alert in no respiratory distress. On reassessment does feel better. Assessment plan: No gross
evidence of bacterial infection. Urinalysis does not appear infected. No white count. No bandemia. No fever. She she was hungry which is a good sign and ate half a sandwich. I do think she is stable for discharge and outpatient follow-up as
planned
Discharge Plan
Departure
Patient Disposition: Home (Routine Discharge)
Date of Disposition: 10/08/24
Time of Disposition: 22:41
Patient with high blood pressure during this ER visit?: No
Condition: Good
Covid-19: Not Applicable
Discharge Problem:
Staghorn calculus, Acute hyponatremia, Acute hypokalemia, Hematuria
Instructions: Clear Liquid Diet, Dehydration, Adult (DC), Blood in Urine (Hematuria), Adult ED
Prescriptions:
No Action
atorvastatin 40 MG tablet
40 mg PO HS
aspirin 81 MG tablet,chewable
81 mg PO DAILY
levothyroxine 175 mcg Tablet
175 mcg PO MOTUWETHFR
citalopram 40 mg Tablet
40 mg PO DAILY
chlorzoxazone 500 mg Tablet
500 mg PO BID
therapeutic multivitamin Tablet
1 tab PO DAILY
acyclovir 400 mg Tablet
400 mg PO TIDPRN PRN (Reason: viral outbreak)
zolpidem 10 mg Tablet
10 mg PO HS
albuterol sulfate 90 mcg/actuation Hfa Aerosol Inhaler
2 puff INHALATION R Q4HPRN PRN (Reason: sob)
cholecalciferol (vitamin D3) [Vitamin D3] 50 mcg (2,000 unit) Tablet
50 mcg PO DAILY
fluticasone furoate-vilanterol [Breo Ellipta] 200-25 mcg/dose Blister With Device
1 inh INHALATION R DAILY
cetirizine 10 MG tablet
10 mg PO HS
acetaminophen [Tylenol Extra Strength] 500 MG tablet
1,000 mg PO Q8HPRN PRN (Reason: mild pain)
topiramate 100 mg Tablet
100 mg PO BID Qty: 0 0RF
Referrals:
Rey Foreman MD [Active] - Follow up in 5-7 days
Adelina Moraes CRNP [Family Provider] - Follow up in 2-3 days
Activity Restrictions/Additional Instructions:
You presented with left flank pain. Your lab results was remarkable for low sodium and low potassium but otherwise there was no concerns for infections. Your urinalysis showed some blood in your urine which is expected given that he just had
instrumentation in the past few days. You have been treated with a dose of potassium tablets and IV fluid and is stable for discharge. Please follow-up with your primary care physician in 2 to 3 days. Come back to the emergency department if you
start having fever, worsening abdominal pain, nausea, vomiting, or bleeding. Please also follow-up with your urologist in about 7 days.
Interventions
Interventions:
*Risk Screen - Suicide Last Done: 10/08/24 16:13
*Neglect/Abuse Screening Last Done: 10/08/24 16:13
ED- Fall Risk Assessment Last Done: 10/08/24 18:19
*Nursing Disposition Last Done: 10/08/24 23:15
LO-Enkksw-Vibjdmtrgz Assessment Last Done: 10/08/24 18:19
Discharge Date and Time
Discharge Date/Time: 10/08/24 23:15
Print Language: SPANISH
[2024-10-08] MEDS: NSS 1000 IV (19:01)
[2024-10-08] MEDS: TORADOL 15 MG IV (19:05)
[2024-10-08 19:17] LABS: Total Thyroxine 8.73 ug/dl (5.5-11.0)
[2024-10-08 19:30] LABS: TSH 1.78 uIU/ml (0.47-4.68)
[2024-10-08] MEDS: KCL ELIXIR 40 MEQ PO (20:23)
[2024-10-08 21:07] LABS: Urine Albumin Trace (Neg - Trace); Urine Bilirubin Negative (Negative); Urine Character Clear (Clear); Urine Color Yellow; Urine Glucose Negative (Negative); Urine Ketone 1+ (Negative); Urine Leukocyte 1+ (Negative); Urine Nitrite Negative (Negative); Urine Occult Blood 4+ (Negative); Urine Specific Gravity 1.015 (<1.030); Urine Urobilinogen Negative (Neg - 1+)
[2024-10-08 21:17] LABS: Urine Bacteria Few (Negative)
[2024-10-08 22:30] VITALS: BP 120/66
== END 2024-10-08 23:15 | disposition home or self-care (01) ==
LOC: EMR 16:01
PROVIDERS: Emergency Medicine; EMERGENCY PHYSICIAN Emergency Medicine; FAMILY PHYSICIAN Nurse Practitioner Adult Health
DX: N20.0 Calculus of kidney (principal); E87.1 Hypo-osmolality and hyponatremia; E87.6 Hypokalemia; E78.00 Pure hypercholesterolemia, unspecified; E03.9 Hypothyroidism, unspecified; J45.909 Unspecified asthma, uncomplicated; Z87.891 Personal history of nicotine dependence; Z90.49 Acquired absence of other specified parts of digestive tract; Z98.890 Other specified postprocedural states
CPT/HCPCS: 96374; 96361; 99284; 80053; 81003; 81015; 83605; 84436; 84443; 85025; 87077; 87086; 87502; 93005